=== PATIENT | male | born 1965 | race Caucasian/White ===

== ENCOUNTER 2016-10-10 07:46 | Day surgery (SDC) | payer OTHER ==
[~2016-10-10 07:46] MED LIST: Dexamethasone 4 MG/ML SDV ONE; EPINEPHrine 1:1000 1 MG/ML SDV ONE; Lactated Ringers 1,000 ML IV SCH; Lactated Ringers 1,000 ML ONE; Lidocaine 1% 4 ML ONE; Lidocaine 1% 6 ML ONE; Lidocaine 1%/Sod Bicarbonate in NS 8.4% 1 ML Syringe IV PRN; Midazolam 1 MG/ML 2 ML SDV ONE; Ondansetron 4 MG/2 ML SDV ONE; Propofol 200 MG/20 ML SDV ONE; Rocuronium 50 MG/5 ML Vial ONE; Ropivacaine 0.5% 5 MG/ML 30 ML SDV ONE; Sodium Chloride 0.9% 10 ML Syringe FLUSH PRN; ceFAZolin 1 GM Vial ONE; fentaNYL 250 MCG/5 ML SDV ONE
--- NOTE | 2016-10-10 08:17 | PCM.PREANE ---
Preanesthetic Assessment - Anesthesia/Transfusion/Family Hx Anesthesia History: Prior Anesthesia Without Reaction Family History of Anesthesia Reaction: No Transfusion History: No Prior Transfusion(s) - Review of Systems General: No Symptoms Pulmonary: No Symptoms Cardiovascular: Dyspnea on Exertion Gastrointestinal: No symptoms Neurological: Numbness (left fingers) Other: Reports: None - Physical Assessment NPO Status Date: 10/09/16 NPO Status Time: 21:00 Pulse: 80 O2 Sat by Pulse Oximetry: 97 Respiratory Rate: 16 Blood Pressure: 141/87 Temperature: 36.1 C Vital Signs: Last Vital Signs Temp 36.1 C 10/10/16 07:50 Pulse 80 10/10/16 07:50 Resp 16 10/10/16 07:50 BP 141/87 H 10/10/16 07:50 Pulse Ox 97 10/10/16 07:50 Height: 1.78 m Weight: 130.181 kg ASA Class: 2 Mental Status: Alert & Oriented x3 Airway Class: Mallampati = 1 Dentition: Reports: Normal Dentition, Broken Tooth/Teeth Thyro-Mental Finger Breadths: 2 Mouth Opening Finger Breadths: 3 ROM/Head Extension: Full Lungs: Clear to auscultation, Normal respiratory effort Cardiovascular: Regular Rate, Regular Rhythm, No Murmurs - Lab Values: Laboratory Last Values MRSA (PCR) Negative 10/08/16 09:44 - Allergies Allergies/Adverse Reactions: Allergies Allergy/AdvReac Type Severity Reaction Status Date / Time erythromycin base Allergy Cannot Verified 10/09/16 15:42 Remember Penicillins Allergy Cannot Verified 10/09/16 15:42 Remember [id number] Reductase Allergy Cannot Verified 10/09/16 15:42 Inhibitor Remember - Acknowledgements Anesthesia Type Planned: General Anesthesia, Regional Block (interscalene block for post-op pain control) Pt an Appropriate Candidate for the Planned Anesthesia: Yes Alternatives and Risks of Anesthesia Discussed w Pt/Guardian: Yes Pt/Guardian Understands and Agrees with Anesthesia Plan: Yes PreAnesthesia Questionnaire HEENT History: Reports: Impaired Vision Cardiovascular History: Reports: High Cholesterol, Hypertension Respiratory History: Reports: Other (See Below) Other Respiratory History: lung nodule Genitourinary History: Reports: None [employer] History: Reports: None Musculoskeletal History: Reports: Other (See Below) Other Musculoskeletal History: spinal stenosis, neurogenic claudication degenration of intervertebral disc, back pain, myofascial pain Neurological History: Reports: None Psychiatric History: Reports: Addiction, Other (See Below) Other Psychiatric History: history of alcohol and drug abuse Endocrine/Metabolic History: Reports: Obesity/BMI 30+, Vitamin D Deficiency Hematologic History: Reports: None Immunologic History: Reports: None Oncologic (Cancer) History: Reports: None Dermatologic History: Reports: None - Past Surgical History Head Surgeries/Procedures: Reports: None GI Surgical History: Reports: Appendectomy - SUBSTANCE USE Smoking Status *Q: Current Every Day Smoker Tobacco Use Within Last Twelve Months: Cigarettes Second Hand Smoke Exposure: Yes Days Per Week of Alcohol Use: 0 Number of Drinks Per Day: 0 Total Drinks Per Week: 0 Recreational Drug Use History: No - HOME MEDS Home Medications: Home Meds Cholecalciferol (Vitamin D3) [Vitamin D3] 2,000 unit PO DAILY 10/09/16 [History] Lisinopril 30 mg PO BID 10/09/16 [History] Meloxicam 15 mg PO DAILY 10/09/16 [History] Omeprazole 20 mg PO DAILY 10/09/16 [History] Cyclobenzaprine [Flexeril] 10 mg PO Q8H PRN #40 tablet 10/10/16 [Rx] Hydrocodone/Acetaminophen [[place] 5-325 Tablet] 1 - 2 each PO Q6H PRN #40 tablet 10/10/16 [Rx] tiZANidine [Zanaflex] 4 mg PO TID 10/10/16 [History] - CURRENT (IN HOUSE) MEDS Current Meds: Current Medications Lactated Ringer's (Ringers, Lactated) 1,000 mls @ 125 mls/hr IV ASDIRECTED DELFIN Stop: 10/10/16 23:00 Lidocaine/Sodium Bicarbonate (Buffered Lidocaine 1% In Ns 8.4%) 0.25 ml IV ONETIME PRN PRN Reason: Prior to IV Start Stop: 10/10/16 18:00 Sodium Chloride (Saline Flush) 10 ml FLUSH ASDIRECTED PRN PRN Reason: Keep Vein Open Stop: 10/10/16 18:00 Discontinued Medications Cefazolin Sodium (Ancef) Confirm Administered Dose 2 gm .ROUTE .STK-MED ONE Stop: 10/10/16 07:00 Dexamethasone (Dexamethasone) Confirm Administered Dose 4 mg .ROUTE .STK-MED ONE Stop: 10/10/16 07:00 Epinephrine HCl (Adrenalin 1:1000) Confirm Administered Dose 1 mg .ROUTE .STK- MED ONE Stop: 10/10/16 06:49 Fentanyl (Sublimaze) Confirm Administered Dose 250 mcg .ROUTE .STK-MED ONE Stop: 10/10/16 07:01 Lidocaine HCl (Xylocaine-Mpf 1%) Confirm Administered Dose 6 mls @ as directed .ROUTE .STTrustedAd-MED ONE Stop: 10/10/16 07:00 Lactated Ringer's (Ringers, Lactated) Confirm Administered Dose 1,000 mls @ as directed .ROUTE .STTrustedAd-MED ONE Stop: 10/10/16 07:00 Lidocaine HCl (Xylocaine-Mpf 1%) Confirm Administered Dose 4 mls @ as directed .ROUTE .STTrustedAd-MED ONE Stop: 10/10/16 06:49 Midazolam HCl (Versed 1 Mg/Ml) Confirm Administered Dose 2 mg .ROUTE .STTrustedAd-MED ONE Stop: 10/10/16 07:01 Ondansetron HCl (Zofran) Confirm Administered Dose 4 mg .ROUTE .STTrustedAd-MED ONE Stop: 10/10/16 07:00 Propofol (Diprivan 20 Ml) Confirm Administered Dose 400 mg .ROUTE .STTrustedAd-MED ONE Stop: 10/10/16 07:00 Rocuronium [place] (Zemuron) Confirm Administered Dose 50 mg .ROUTE .STK-MED ONE Stop: 10/10/16 07:00 Ropivacaine (Naropin 0.5%) Confirm Administered Dose 30 ml .ROUTE .STTrustedAd-MED ONE Stop: 10/10/16 06:50
[2016-10-10] MEDS ORDERED: ceFAZolin 1 GM Vial ONE (08:20)
[2016-10-10] MEDS ORDERED: EPINEPHrine 1:1000 1 MG/ML 30 ML MDV ONE (09:02)
--- NOTE | 2016-10-10 09:20 | PCM.SN ---
- Free Text/Narrative Note: Note: 10/10/2016 131/84 74 98% 14 Surgeon and pt request post-op pain control for left shoulder surgery risk of block failure, facial numbness, site infection, and chronic pain discussed with pt and agreed to proceed. All standard monitors est. EKG, BP, Pulse Ox, 2L O2, and 2ml versed, 2ml fentanyl pre-op dx. left shoulder pain post-op dx left shoulder arthroscopy with RCR pt for interscalene block placement all standard monitors est. pt ID time out performed IV sedation 2ml versed, 2ml fentanyl, 2L NC O2, sterile prep and drape of left neck and shoulder U/S placed with visualization of brachial plexus from clavicle to cricoid local skin infiltration 22ga. Stimplex A insulated needle visualized at brachial plexus nerve stimulator at .9 Lorie Amps stop at .4 Lorie Amps with good bicep twitch with 1ml NaCl and lose of twitch neg aspirations every 5ml of 0.5% ropivacaine and 1:200,000 epi total of 30ml injected all done with U/S guidance needle withdrawn no complications noted pt tolerated procedure well block settling in start procedure at 0830 end procedure at 0857 143/79 86 97% 10
[2016-10-10] MEDS ORDERED: HYDROmorphone 1 MG/ML Syringe ONE (09:39)
[2016-10-10] MEDS ORDERED: fentaNYL 250 MCG/5 ML SDV ONE (10:06)
[2016-10-10] MEDS ORDERED: Ondansetron 4 MG/2 ML SDV IVPUSH PRN (10:17)
[2016-10-10] MEDS ORDERED: Albuterol 0.083% 2.5 MG/3 ML Neb Soln NEB PRN (10:17)
[2016-10-10] MEDS: Bupivacaine 0.25% 30 ML SDV ONE ×2 (10:29→10:57)
[2016-10-10] MEDS ORDERED: Rocuronium 50 MG/5 ML Vial ONE (10:30)
[2016-10-10] MEDS ORDERED: Phenylephrine 1 MG in Sodium Chloride 0.9% 10 ML IV SCH (10:30)
[2016-10-10] MEDS ORDERED: Labetalol 100 MG/20 ML MDV ONE (10:31)
[2016-10-10] MEDS ORDERED: Neostigmine Methylsulfate 1 MG/ML 5 ML Syringe ONE (10:51)
[2016-10-10] MEDS ORDERED: Ketorolac 30 MG/ML SDV ONE (11:03)
[2016-10-10] MEDS ORDERED: fentaNYL 100 MCG/2 ML SDV IVPUSH PRN (11:20)
[2016-10-10] MEDS ORDERED: HYDROmorphone 0.5 MG/0.5 ML Syringe IVPUSH PRN (11:20)
--- NOTE | 2016-10-10 11:27 | PCM.POSTAN ---
POST ANESTHESIA ASSESSMENT - MENTAL STATUS Mental Status: alert - VITAL SIGNS Pulse Rate: 83 SaO2: 92 Resp Rate: 12 Blood Pressure: 154/81 - RESPIRATORY Respiratory Status: respiratory rate WNL, airway patent, O2 saturation stable, supplemental oxygen - CARDIOVASCULAR CV Status: pulse rate WNL, blood pressure stable - GASTROINTESTINAL GI Status: no symptoms - POST OP HYDRATION Hydration Status: adequate & stable
[2016-10-10] MEDS ORDERED: Acetaminophen/HYDROcodone 325-5 MG Tab PO SCH (12:00)
[2016-10-10 12:33] VITALS: BP 140/86
--- NOTE | 2016-10-10 14:35 | PCM48HPAN ---
Post Anesthesia Note - EVALUATION WITHIN 48HRS OF ANESTHETIC Vital Signs in Normal Range: Yes Patient Participated in Evaluation: Yes Respiratory Function Stable: Yes Airway Patent: Yes Cardiovascular Function Stable: Yes Hydration Status Stable: Yes Pain Control Satisfactory: Yes Nausea and Vomiting Control Satisfactory: Yes Mental Status Recovered: Yes
--- NOTE | 2016-10-16 08:50 | PCM.OPNOTE ---
- General Post-Op/Procedure Note Date of Surgery/Procedure: 10/10/16 Operative Procedure(s): left shoulder video arthroscopy with rotator cuff repair and subacromial decompression Pre Op Diagnosis: left shoulder rotator cuff tear with impingement Post-Op Diagnosis: Same Anesthesia Technique: General ET tube, Regional block Primary Surgeon: Tito Pineda Anesthesia Provider: Ember Chi Perinatal Technician: Azalea Strauss EBNohemy in mLs: 5 Complications: None Condition: Good
--- NOTE | 2016-10-16 09:37 | OR ---
DATE OF OPERATION: 10/10/2016 SURGEON: Tito Pineda MD OPERATION PERFORMED: Left shoulder video arthroscopy for rotator cuff repair and subacromial decompression. PREOPERATIVE DIAGNOSIS: Left shoulder rotator cuff tear with impingement. POSTOPERATIVE DIAGNOSIS: Left shoulder rotator cuff tear with impingement. ANESTHESIA: General endotracheal intubation with regional block. ANESTHESIA PROVIDER: Ember Chi CRNA. FOURDRINIER TENDER: Azalea Strauss PA-C. ESTIMATED BLOOD LOSS: Less than 5 mL. COMPLICATIONS: None. CONDITION: Stable. DESCRIPTION OF PROCEDURE: The patient was identified in the preop holding area. Proper site was marked and identified by the surgeon. The patient was taken back to the operating theater, where after adequate anesthesia, the patient was placed in the lazy right lateral decubitus position. A wedge was placed posteriorly. All bony prominences were well padded. At this time, the left shoulder was sterilely prepped and draped in the usual sterile fashion. OR-wide time-out was performed. The patient received 2 grams of IV Ancef. At this time, 15 pounds of traction was applied to the left upper extremity. Posterior portal incision was then made. Scope trocar was introduced into the glenohumeral joint. With the use of a spinal needle, anterior portal was created from the outside in. Cursory examination showed no signs of biceps tendinopathy. There were no signs of chondromalacia. There was noted to be a supraspinatus tear. Subscapularis tendon was intact. At this time, the scope trocar was removed and placed in subacromial space. Subacromial limited bursectomy was then carried out. Lateral portal was created with the use of spinal needle. At this time, the tear was identified and it was brought back to a stable tendon. A good bony bleeding bed was then prepared with the use of a resector. At this time, a 4.75- mm Arthrex SwiveLock anchor was then placed medially with one limb of FiberTape and one limb of FiberWire. At this time, the limbs of FiberTape and limbs of FiberWire were then passed from anterior to posterior. The limbs of FiberWire were then tied for a medial row repair. All 4 limbs were then brought out laterally through a 4.75-mm SwiveLock Arthrex anchor for a lateral row repair. There was found to be adequate scientology of the footprint. At this time, a subacromial decompression was then completed on the type 2/3 acromion back to a smooth border. At this time, excess saline was drained from the shoulder. 3-0 nylon simple suture was used for closure of the skin. The patient was placed in a pillow sling and a sterile soft dressing, and was sent to the PACU in a stable condition. IMELDA /[id number]
== END 2016-10-10 13:25 | disposition home or self-care (01) ==
LOC: JD.SDS 07:46
PROVIDERS: ATTEND Orthopaedic Surgery
DX: M75.102 Unspecified rotator cuff tear or rupture of left shoulder, not specified as traumatic (principal); E78.5 Hyperlipidemia, unspecified; M48.06 Spinal stenosis, lumbar region; M51.36 Other intervertebral disc degeneration, lumbar region; G89.29 Other chronic pain; M54.5 Low back pain; M79.1 Myalgia; I10 Essential (primary) hypertension; F10.21 Alcohol dependence, in remission; F43.20 Adjustment disorder, unspecified; E66.9 Obesity, unspecified; B35.9 Dermatophytosis, unspecified; E55.9 Vitamin D deficiency, unspecified; F17.210 Nicotine dependence, cigarettes, uncomplicated; Z88.8 Allergy status to other drugs, medicaments and biological substances; Z88.0 Allergy status to penicillin; Z88.1 Allergy status to other antibiotic agents; Z79.1 Long term (current) use of non-steroidal anti-inflammatories (NSAID); Z79.899 Other long term (current) drug therapy; Z68.41 Body mass index [BMI] 40.0-44.9, adult
CPT/HCPCS: 29826; 29827; 87641; 93005; 94664; J0171; J0690; J1100; J1170; J1885; J2250; J2405; J2710; J2795; J3010; J7120; 01630; 64415; J2704; J3490

== ENCOUNTER 2021-12-03 08:25 | Day surgery (SDC) | payer OTHER ==
[~2021-12-03 08:25] MED LIST changes: -Dexamethasone 4 MG/ML SDV ONE; -EPINEPHrine 1:1000 1 MG/ML SDV ONE; -Lactated Ringers 1,000 ML ONE; -Lidocaine 1% 4 ML ONE; -Lidocaine 1% 6 ML ONE; +Lidocaine 1%/Sod Bicarbonate in NS 8.4% 1 ML Syringe IDERM PRN; -Lidocaine 1%/Sod Bicarbonate in NS 8.4% 1 ML Syringe IV PRN; -Midazolam 1 MG/ML 2 ML SDV ONE; -Ondansetron 4 MG/2 ML SDV ONE; -Propofol 200 MG/20 ML SDV ONE; -Rocuronium 50 MG/5 ML Vial ONE; -Ropivacaine 0.5% 5 MG/ML 30 ML SDV ONE; +Sodium Chloride 0.9% 10 ML Syringe FLUSH SCH; -ceFAZolin 1 GM Vial ONE; -fentaNYL 250 MCG/5 ML SDV ONE
[2021-12-03] MEDS ORDERED: fentaNYL 100 MCG/2 ML SDV ONE (10:41)
[2021-12-03] MEDS ORDERED: Propofol 200 MG/20 ML SDV ONE ×2 (10:41→11:29)
[2021-12-03] MEDS ORDERED: Midazolam 1 MG/ML 2 ML SDV ONE (10:41)
[2021-12-03] MEDS ORDERED: Lactated Ringers 1,000 ML ONE (11:51)
[2021-12-03] MEDS ORDERED: Simethicone 80 MG Tab.Chew PO SCH (12:16)
[2021-12-03] MEDS ORDERED: fentaNYL 100 MCG/2 ML SDV IVPUSH ONE (12:45)
[2021-12-03 16:09] VITALS: BP 146/67; PULSE 79
== END 2021-12-03 13:03 | disposition home or self-care (01) ==
LOC: JD.SDS 08:25
PROVIDERS: ATTEND Surgery
DX: K63.5 Polyp of colon (principal); K62.1 Rectal polyp; I10 Essential (primary) hypertension; E78.00 Pure hypercholesterolemia, unspecified; E66.9 Obesity, unspecified; M48.02 Spinal stenosis, cervical region; M50.322 Other cervical disc degeneration at C5-C6 level; F15.10 Other stimulant abuse, uncomplicated; F12.10 Cannabis abuse, uncomplicated; E55.9 Vitamin D deficiency, unspecified; Z98.890 Other specified postprocedural states; Z87.891 Personal history of nicotine dependence; Z88.0 Allergy status to penicillin; Z88.8 Allergy status to other drugs, medicaments and biological substances; Z88.1 Allergy status to other antibiotic agents; Z90.49 Acquired absence of other specified parts of digestive tract; Z68.41 Body mass index [BMI] 40.0-44.9, adult; Z79.899 Other long term (current) drug therapy
CPT/HCPCS: 45380; 45385; A9270; J2250; J2704; J3010; J7120; 00811